=== PATIENT | male | born 1995 | race Caucasian/White ===

== ENCOUNTER 2017-05-01 13:07 | Emergency (ER) | payer OTHER ==
[~2017-05-01] VITALS: Ht 188 cm; Wt 86.4 kg
[2017-05-01] MEDS ORDERED: LIDOCAINE 2% MDV 20 ML VIAL SC ONE (14:15)
--- NOTE | 2017-05-01 14:53 | REP ---
LEFT 2ND DIGIT: Four views. There is no evidence of an acute fracture, dislocation or intrinsic bone disease. IMPRESSION: No fracture or dislocation. Signed by Clyde Steiner MD 05/01/2017 05:58 P
[2017-05-01 15:27] VITALS: BP 128/62
[2017-07-24] MEDS ORDERED: ZYRT10CA PO (11:18)
== END 2017-05-01 15:33 | disposition home or self-care (01) ==
LOC: M ED 13:07
DX: S61.211A Laceration without foreign body of left index finger without damage to nail, initial encounter (principal); X58.XXXA Exposure to other specified factors, initial encounter; Y92.89 Other specified places as the place of occurrence of the external cause; Y93.89 Activity, other specified; Y99.1 Military activity

== ENCOUNTER 2017-07-31 09:46 | Day surgery (SDC) | payer OTHER ==
[~2017-07-31] VITALS: Ht 188 cm; Wt 98.4 kg
[~2017-07-31 09:46] MED LIST: ZYRT10CA PO
[2017-07-31] MEDS ORDERED: LIDOCAINE 1% MDV 20ML VIAL SQ PRN (10:00)
[2017-07-31] MEDS ORDERED: LR 1,000 ML IV ONE (10:00)
[2017-07-31] MEDS ORDERED: dexameTHASONE 4 MG/ML 1ML VIAL (J1100) IV ONE (10:15)
[2017-07-31] MEDS ORDERED: OXYMETAZOLINE NASAL SPRAY (AFRIN) As Ordered ONE (10:39)
[2017-07-31] MEDS ORDERED: NEOSTIGMINE 10 MG/10 ML VIAL (J2710) As Ordered ONE (11:39)
[2017-07-31] MEDS ORDERED: dexameTHASONE 4 MG/ML 1ML VIAL (J1100) As Ordered ONE (11:39)
[2017-07-31] MEDS ORDERED: GLYCOPYRROLATE INJ 0.2 MG/ML 2 ML VIAL As Ordered ONE (11:39)
[2017-07-31] MEDS ORDERED: ONDANSETRON 4MG/2ML VIAL (J2405) As Ordered ONE ×2 (11:39→12:20)
[2017-07-31] MEDS ORDERED: PROPOFOL 500 MG/50 ML VIAL As Ordered ONE (11:56)
[2017-07-31] MEDS ORDERED: MIDAZOLAM INJ 2 MG/2 ML VIAL (J2250) As Ordered ONE (11:56)
[2017-07-31] MEDS ORDERED: fentaNYL 250 MCG/5 ML INJECTION (J3010) As Ordered ONE (11:56)
[2017-07-31] MEDS: PERCOCET 5MG/325MG TAB PO PRN ×2 (12:20→12:59)
[2017-07-31] MEDS: fentaNYL 100 MCG/2 ML INJECTION (J3010) IV PRN ×4 (12:20→13:10)
[2017-07-31] MEDS ORDERED: PERCOCET 5MG/325MG TAB As Ordered ONE (12:21)
[2017-07-31] MEDS ORDERED: fentaNYL 100 MCG/2 ML INJECTION (J3010) As Ordered ONE (12:44)
[2017-07-31] MEDS ORDERED: ONDANSETRON 4MG/2ML VIAL (J2405) IV PRN (13:00)
[2017-07-31] MEDS ORDERED: MEPERIDINE INJ 25 MG/ML VIAL (J2175) IV PRN (13:00)
[2017-07-31] MEDS ORDERED: LR 1,000 ML IV SCH ×2 (13:00)
[2017-07-31 13:40] VITALS: BP 131/69
--- NOTE | 2017-08-20 14:10 | RO ---
DATE OF PROCEDURE: 08/20/2017 PREOPERATIVE DIAGNOSIS: Tonsillar hypertrophy. POSTOPERATIVE DIAGNOSIS: Tonsillar hypertrophy. PROCEDURE PERFORMED: Tonsillectomy. SURGEON: Hieu Bishop MD MOLDING SANDER: ANESTHESIA: General. CLINICAL PREAMBLE: This 22-year-old man presented to the office with a history of enlarged tonsils. Physical examination revealed the presence of enlarged tonsils. Management options, including surgery listed above have been discussed. The patient understood and consented to the procedure. DESCRIPTION OF PROCEDURE: Patient was identified in preoperative holding and brought to the operating room in stable condition. In supine position on the operating table, patient received general anesthesia followed by orotracheal intubation without incident. Patient was prepped and draped in the usual fashion for the procedure. The Jeffrey-Tip mouth gag was inserted and suspended. The right tonsil was medialized using curved Allis forceps. Mucosal incision was made over the superior pole of the right tonsil using the Coblator wand set at 7 for Coblation. The tonsillar capsule was identified, and dissection was carried out along this plane to excise the right tonsil. The left tonsil was then similarly dissected out. At the end of the procedure, both tonsil beds were free of bleeding. Estimated blood loss was less than 10 mL. No complication was encountered. Sponge and instruments counts were correct at the end of the procedure. General anesthesia was reversed, and patient was extubated and brought to the recovery room in stable condition.
== END 2017-07-31 14:05 | disposition home or self-care (01) ==
LOC: M SDC 09:46
PROVIDERS: ATTEND Otolaryngology
DX: J35.1 Hypertrophy of tonsils (principal); J30.9 Allergic rhinitis, unspecified
CPT/HCPCS: 42826; 88302; J1100; J2250; J2405; J2710; J3010